=== PATIENT | female | born 1980 | race Caucasian/White ===

== ENCOUNTER 2018-01-31 23:27 | Emergency (ER) | payer OTHER, SELFPAY ==
[2018-02-01 00:06] VITALS: BP 129/75; PULSE 65; RESP 15; TEMP 36.5; O2SAT 100; BMI 34.9
--- NOTE | 2018-02-01 03:00 | ED.FEMALEGU ---
HPI - Female Genitourinary General Chief complaint: Urogenital-Female Stated complaint: LABIA IS SWOLLEN AND SORE, RED History of Present Illness HPI Narrative: HPI 37-year-old female presents for evaluation of one day of inferior left labial swelling and tenderness. Denies vaginal discharge or discomfort. No fevers or chills. ROS with no recent constitutional symptoms. Exam Gen: Pleasant, non-toxic appearing, resting comfortably HEENT: NC, AT, PEERL, EOMI. Resp: Clear to auscultation bilaterally. Unlabored respirations with a normal work of breathing. Card: Regular rate and rhythm. Extremities warm and well perfused. GI: Non-distended. : chaperoned pelvic exam with visually normal female external genitalia with the exception of mild swelling on the inferior/posterior aspect of the labia majora and extending to the labia minora. No erythema, fluctuance, or crepitance. Speculum exam individual exam without further appreciable abnormalities. MSK: No visible deformities, strength and tone without visually appreciable deficit. Neuro: AO x 3, no facial asymmetry, vision and hearing WNL. Heme/Lymph: Deferred Skin: Normal color with no visible lesions (other than noted above). Psych: Mood and affect appropriate. Focused Soft Tissue Ultrasound Procedure: Limited evaluation of the left inferior/posterior labia minora and majora. Indication: evaluation for cellulitis and abscesses. Views obtained: sagittal and transverse. Findings: posterior labia minora and majora with underlying soft tissue cobblestoning, approximately 1.8 cm deep there is a small (3-4 mm) fluid pocket, no gas. MDM Previous chart, nursing note, and vitals reviewed. A: 37-year-old female presents for evaluation of one day of inferior left labial swelling and tenderness DDx & Evaluation: exam concerning for early phlegmon/cellulitis with a small fluid collection is not amenable to drainage. Given the size of the fluid collection this may be treated initially with antibiotics. Discussed with the patient was possibility of treatment failure in the need to return for drainage. Patient prescribed cephalexin and doxycycline. Impression: phlegmon (please reference below for remainder of encounter information) Related Data Home Medications Medication Instructions Recorded Confirmed No Known Home Medications 02/01/18 02/01/18 Allergies Allergy/AdvReac Type Severity Reaction Status Date / Time tegaderm Allergy Uncoded 02/01/18 00:09 [facility] Social History Smoking Status: Never smoker Exam Initial Vital Signs Initial Vital Signs: Vital Signs Temperature 97.7 F 02/01/18 00:06 Pulse Rate 65 02/01/18 00:06 Respiratory Rate 15 02/01/18 00:06 Blood Pressure 129/75 H 02/01/18 00:06 Pulse Oximetry 100 02/01/18 00:06 Course Vital Signs - 8 hr 02/01/18 00:06 Temperature 97.7 F Pulse Rate 65 Respiratory Rate 15 Blood Pressure 129/75 H Pulse Oximetry 100 Discharge Plan Departure Prescriptions: No Action No Known Home Medications RF: 0
[2018-02-01] MEDS: DOXYCYCLINE HYCLATE 100 MG TABLET PO (03:06)
[2018-02-01] MEDS: cephALEXin 250 MG CAPSULE 500 MG PO (03:06)
[2018-02-01 03:15] VITALS: BP 114/71; PULSE 70; RESP 16; TEMP 36.1; O2SAT 100
== END 2018-02-01 03:16 | disposition home or self-care (01) ==
PROVIDERS: Emergency Provider Emergency Medicine
DX: L02.91 Cutaneous abscess, unspecified (principal)
CPT/HCPCS: 99283